=== PATIENT | female | born 1950 | race African-American/Black ===

== ENCOUNTER 2018-03-07 09:26 | Emergency (ER) | payer MEDICARE, MEDICAID ==
[~2018-03-07] VITALS: Ht 167.6 cm; Wt 73.0 kg
[~2018-03-07 09:26] MED LIST: ATEN50TA PO; FLUO20CA33 PO; METF-414 PO; SIMV40TA5 PO; VALS160T2 PO
[2018-03-07] MEDS ORDERED: ALPRAZOLAM 0.5 MG TABLET PO ONE (11:30)
[2018-03-07 14:21] VITALS: BP 144/61
== END 2018-03-07 14:21 | disposition home or self-care (01) ==
LOC: ER 09:42
DX: F41.9 Anxiety disorder, unspecified (principal); I25.2 Old myocardial infarction; E78.00 Pure hypercholesterolemia, unspecified; F31.9 Bipolar disorder, unspecified; Z79.899 Other long term (current) drug therapy; Z98.890 Other specified postprocedural states
CPT/HCPCS: 93005; 99284

== ENCOUNTER 2018-10-10 08:25 | Emergency (ER) | payer MEDICARE, MEDICAID ==
[~2018-10-10] VITALS: Ht 167.6 cm; Wt 73.0 kg
[2018-10-10 12:50] LABS: BASOPHILS % 0.7 % (0.0-2.0); EOSINOPHILS % 0.8 % (0.0-5.0); HEMATOCRIT. 38.1 % (36.0-48.0); LYMPHOCYTES % 27.1 % (20.0-50.0); MEAN CORPUSCULAR HEMOGLOBIN 29.9 pg (28.0-32.0); MEAN CORPUSCULAR VOLUME 87.4 fL (81.0-99.0); MEAN PLATELET VOLUME 8.1 fl (7.4-10.4); MONOCYTES % 10.2 % (2.0-8.0); NEUTROPHILS % 61.2 % (40.0-76.0); PLATELET 237 x1000/uL (130-400); RED BLOOD CELL COUNT 4.36 mill/uL (4.2-5.4); RED CELL DISTRIBUTION WIDTH 12.1 % (11.6-14.6)
[2018-10-10 12:56] LABS: CHLORIDE 108 mEq/L (98-107)
[2018-10-10] MEDS ORDERED: ONDANSETRON HCL 4MG/2ML INJ IV PRN (13:00)
[2018-10-10] MEDS ORDERED: ACETAMINOPHEN 325MG TABLET PO PRN (13:00)
[2018-10-10 15:00] VITALS: BP 111/71
[2018-10-11] MEDS ORDERED: ASPIRIN 81MG TABLET PO SCH (09:00)
== END 2018-10-10 16:34 | disposition left against medical advice (07) ==
LOC: ER 08:38 → EDBEDREQ 11:20 → CANBEDREQ 15:20 → ER 16:34
DX: I24.9 Acute ischemic heart disease, unspecified (principal); F41.9 Anxiety disorder, unspecified; F31.9 Bipolar disorder, unspecified; E11.9 Type 2 diabetes mellitus without complications; E78.00 Pure hypercholesterolemia, unspecified; I25.2 Old myocardial infarction; F17.290 Nicotine dependence, other tobacco product, uncomplicated
CPT/HCPCS: 36415; 71045; 82962; 83880; 84443; 84484; 93005; 99284

== ENCOUNTER 2018-11-26 11:12 | Emergency (ER) | payer MEDICARE, MEDICAID ==
[~2018-11-26] VITALS: Ht 162.6 cm; Wt 82.0 kg
[2018-11-26] MEDS ORDERED: MECLIZINE 25MG TABLET PO ONE (12:00)
[2018-11-26] MEDS ORDERED: SODIUM CHLORIDE 0.9% 1,000 ML IV ONE (12:00)
[2018-11-26] MEDS ORDERED: ONDANSETRON HCL 4MG/2ML INJ IV ONE (12:00)
[2018-11-26 12:16] LABS: BASOPHILS % 0.7 % (0.0-2.0); EOSINOPHILS % 1.9 % (0.0-5.0); HEMATOCRIT. 37.8 % (36.0-48.0); HEMOGLOBIN. 12.7 g/dL (12.0-16.0); LYMPHOCYTES % 26.7 % (20.0-50.0); MEAN CORPUSCULAR HEMOGLOBIN 29.6 pg (28.0-32.0); MEAN CORPUSCULAR VOLUME 88.4 fL (81.0-99.0); MEAN PLATELET VOLUME 8.5 fl (7.4-10.4); MONOCYTES % 10.5 % (2.0-8.0); NEUTROPHILS % 60.2 % (40.0-76.0); PLATELET 237 x1000/uL (130-400); RED BLOOD CELL COUNT 4.28 mill/uL (4.2-5.4); RED CELL DISTRIBUTION WIDTH 12.5 % (11.6-14.6)
[2018-11-26 12:20] LABS: CHLORIDE 104 mEq/L (98-107)
[2018-11-26 14:33] LABS: CLARITY URINE CLEAR (CLEAR); COLOR URINE YELLOW (YELLOW); KETONES URINE NEGATIVE (NEGATIVE); LEUKOCYTE ESTERASE URINE NEGATIVE (NEGATIVE); NITRITE URINE NEGATIVE (NEGATIVE); OCCULT BLOOD URINE NEGATIVE (NEGATIVE); PH URINE 6.5 (4.5-8.0); PROTEIN URINE NEGATIVE (NEGATIVE); UROBILINOGEN URINE 0.2 E.U./dL (0.2-1.0)
[2018-11-26 15:24] VITALS: BP 137/59
== END 2018-11-26 15:25 | disposition home or self-care (01) ==
LOC: ER 11:12
DX: R42 Dizziness and giddiness (principal); R51 Headache; F41.9 Anxiety disorder, unspecified; F31.9 Bipolar disorder, unspecified; E11.9 Type 2 diabetes mellitus without complications; E78.00 Pure hypercholesterolemia, unspecified; I25.2 Old myocardial infarction; Z79.899 Other long term (current) drug therapy
CPT/HCPCS: 36415; 70450; 71045; 80053; 81003; 84484; 85025; 93005; 96361; 96374; 99284; J2405; J7030; J8597

== ENCOUNTER 2019-01-09 10:02 | Inpatient (IN) | payer MEDICARE, MEDICAID ==
[~2019-01-09] VITALS: Ht 165.1 cm; Wt 86.2 kg
[2019-01-09 10:55] LABS: BASOPHILS % 0.6 % (0.0-2.0); EOSINOPHILS % 1.4 % (0.0-5.0); HEMATOCRIT. 39.6 % (36.0-48.0); HEMOGLOBIN. 13.5 g/dL (12.0-16.0); LYMPHOCYTES % 29.1 % (20.0-50.0); MEAN CORPUSCULAR HEMOGLOBIN 29.7 pg (28.0-32.0); MEAN PLATELET VOLUME 8.1 fl (7.4-10.4); NEUTROPHILS % 57.9 % (40.0-76.0); PLATELET 249 x1000/uL (130-400); RED BLOOD CELL COUNT 4.55 mill/uL (4.2-5.4); RED CELL DISTRIBUTION WIDTH 12.8 % (11.6-14.6)
[2019-01-09 11:00] LABS: CHLORIDE 104 mEq/L (98-107)
[2019-01-09 11:04] LABS: ETHANOL BLOOD < 10 mg/dL
[2019-01-09 12:15] VITALS: BP 109/44
[2019-01-09 13:03] LABS: METHADONE URINE SCREEN NEGATIVE (NEGATIVE); OPIATES URINE SCREEN NEGATIVE (NEGATIVE)
[2019-01-09 13:04] LABS: *AMPHETAMINES SCREEN URINE NEGATIVE (NEGATIVE); CANNABINOID URINE SCREEN NEGATIVE (NEGATIVE); PHENCYCLIDINE URINE SCREEN NEGATIVE (NEGATIVE)
[2019-01-09 13:07] LABS: *BARBITURATES SCREEN URINE NEGATIVE (NEGATIVE); *BENZODIAZEPINES SCREEN URINE NEGATIVE (NEGATIVE); *COCAINE SCREEN URINE NEGATIVE (NEGATIVE)
[2019-01-09] MEDS ORDERED: ONDANSETRON HCL 4MG/2ML INJ IV PRN (14:30)
[2019-01-09] MEDS: MECLIZINE 25MG TABLET PO PRN (18:04)
[2019-01-09] MEDS: ACETAMINOPHEN 325MG TABLET PO PRN (18:05)
[2019-01-09 20:00] VITALS: BP_SYST 114; BP_SYST 141; BP_SYST 156; BP_DIAS 41; BP_DIAS 56; BP_DIAS 71
[2019-01-09] MEDS: ENOXAPARIN 40MG/0.4ML SYR SUBCUT SCH (20:46)
[2019-01-10] VITALS: BP 112/46
[2019-01-10 04:00] VITALS: BP 132/48
[2019-01-10 06:19] LABS: BASOPHILS % 0.5 % (0.0-2.0); EOSINOPHILS % 2.2 % (0.0-5.0); HEMOGLOBIN. 13.3 g/dL (12.0-16.0); LYMPHOCYTES % 37.8 % (20.0-50.0); MEAN CORPUSCULAR HEMOGLOBIN 29.7 pg (28.0-32.0); MEAN CORPUSCULAR VOLUME 87.1 fL (81.0-99.0); MEAN PLATELET VOLUME 8.7 fl (7.4-10.4); MONOCYTES % 13.1 % (2.0-8.0); NEUTROPHILS % 46.4 % (40.0-76.0); PLATELET 245 x1000/uL (130-400); RED BLOOD CELL COUNT 4.48 mill/uL (4.2-5.4); RED CELL DISTRIBUTION WIDTH 12.9 % (11.6-14.6)
[2019-01-10 06:38] LABS: CHLORIDE 106 mEq/L (98-107)
[2019-01-10 08:18] LABS: CLARITY URINE CLEAR (CLEAR); COLOR URINE YELLOW (YELLOW); KETONES URINE NEGATIVE (NEGATIVE); LEUKOCYTE ESTERASE URINE NEGATIVE (NEGATIVE); NITRITE URINE NEGATIVE (NEGATIVE); OCCULT BLOOD URINE NEGATIVE (NEGATIVE); PROTEIN URINE NEGATIVE (NEGATIVE); SPECIFIC GRAVITY URINE 1.016 (1.005-1.030); UROBILINOGEN URINE 0.2 E.U./dL (0.2-1.0)
[2019-01-10] MEDS ORDERED: INFLUENZA VIRUS VACCINE(AFLURIA) 0.5ML SYR IM ONE (09:00)
[2019-01-10] MEDS: MECLIZINE 25MG TABLET PO PRN (09:49)
[2019-01-10] MEDS: ACETAMINOPHEN 325MG TABLET PO PRN (09:49)
[2019-01-10 20:44] VITALS: BP_SYST 134; BP_SYST 142; BP_DIAS 56; BP_DIAS 58
[2019-01-10 20:45] VITALS: BP 130/60
[2019-01-10] MEDS: ENOXAPARIN 40MG/0.4ML SYR SUBCUT SCH (20:57)
[2019-01-11] VITALS (8 sets, daily range): BP systolic 129–157; BP diastolic 60–82
[2019-01-11 06:25] LABS: BASOPHILS % 0.4 % (0.0-2.0); EOSINOPHILS % 1.2 % (0.0-5.0); HEMATOCRIT. 38.7 % (36.0-48.0); HEMOGLOBIN. 13.2 g/dL (12.0-16.0); LYMPHOCYTES % 30.6 % (20.0-50.0); MEAN CORPUSCULAR HEMOGLOBIN 29.7 pg (28.0-32.0); MEAN CORPUSCULAR VOLUME 87.3 fL (81.0-99.0); MEAN PLATELET VOLUME 8.7 fl (7.4-10.4); MONOCYTES % 7.9 % (2.0-8.0); NEUTROPHILS % 59.9 % (40.0-76.0); PLATELET 230 x1000/uL (130-400); RED BLOOD CELL COUNT 4.43 mill/uL (4.2-5.4); RED CELL DISTRIBUTION WIDTH 12.9 % (11.6-14.6)
[2019-01-11 07:01] LABS: CHLORIDE 102 mEq/L (98-107)
[2019-01-11] MEDS ORDERED: DILTIAZEM HCL 120MG CAPSULE CD 24HR PO SCH (15:15)
== END 2019-01-11 17:05 | disposition home or self-care (01) | DRG 74 ==
LOC: ER 10:02 → 6WST 11:29 → EDBEDREQTM 11:33 → EDBEDREQ 11:33 → ENRESERV 11:44
PROVIDERS: ADMIT Internal Medicine; ATTEND Internal Medicine
DX: G90.8 Other disorders of autonomic nervous system (principal); E11.9 Type 2 diabetes mellitus without complications; F31.9 Bipolar disorder, unspecified; I10 Essential (primary) hypertension; E78.5 Hyperlipidemia, unspecified; R07.89 Other chest pain; J44.9 Chronic obstructive pulmonary disease, unspecified; I25.2 Old myocardial infarction; Z79.899 Other long term (current) drug therapy; Z71.6 Tobacco abuse counseling; Z87.891 Personal history of nicotine dependence
CPT/HCPCS: 36415; 71045; 80048; 80305; 80320; 81003; 82962; 83880; 84484; 90686; 93005; 93306; 97162; 99285; J1650; J8597; G0480

== ENCOUNTER 2019-12-18 09:36 | Inpatient (IN) | payer MEDICARE, MEDICAID ==
[~2019-12-18] VITALS: Ht 162.6 cm; Wt 67.1 kg
[~2019-12-18 09:36] MED LIST changes: +SIMV-46 PO; -SIMV40TA5 PO; -VALS160T2 PO
[2019-12-18] MEDS ORDERED: MECLIZINE 25MG TABLET PO ONE (10:15)
[2019-12-18] MEDS ORDERED: ONDANSETRON 4MG ODT PO STA (10:15)
[2019-12-18 10:55] LABS: BASOPHILS % 0.5 % (0.0-2.0); EOSINOPHILS % 0.9 % (0.0-5.0); HEMATOCRIT. 40.2 % (36.0-48.0); HEMOGLOBIN. 13.6 g/dL (12.0-16.0); LYMPHOCYTES % 22.5 % (20.0-50.0); MEAN CORPUSCULAR HEMOGLOBIN 29.2 pg (28.0-32.0); MEAN PLATELET VOLUME 8.1 fl (7.4-10.4); MONOCYTES % 13.2 % (2.0-8.0); NEUTROPHILS % 62.9 % (40.0-76.0); PLATELET 265 x1000/uL (130-400); RED BLOOD CELL COUNT 4.67 mill/uL (4.2-5.4)
[2019-12-18 10:59] LABS: CHLORIDE 101 mEq/L (98-107)
[2019-12-18] MEDS ORDERED: SODIUM CHLORIDE 0.9% 500 ML IV ONE (11:15)
[2019-12-18] MEDS ORDERED: ASPIRIN 325MG EC TABLET PO ONE (11:45)
[2019-12-18] MEDS ORDERED: CLONIDINE 0.1MG TABLET PO PRN (12:15)
[2019-12-18] MEDS ORDERED: DIPHENHYDRAMINE 50MG/ML VIAL IV PRN (12:15)
[2019-12-18] MEDS ORDERED: IPRATROPIUM/ALBUTEROL 0.5-3(2.5)MG/3ML NEB HHN PRN (12:15)
[2019-12-18] MEDS ORDERED: MECLIZINE 12.5MG TABLET PO PRN (12:15)
[2019-12-18] MEDS ORDERED: ONDANSETRON HCL 4MG/2ML INJ IV PRN (12:15)
[2019-12-18 12:16] LABS: CLARITY URINE CLOUDY (CLEAR); COLOR URINE YELLOW (YELLOW); KETONES URINE NEGATIVE (NEGATIVE); LEUKOCYTE ESTERASE URINE NEGATIVE (NEGATIVE); NITRITE URINE NEGATIVE (NEGATIVE); OCCULT BLOOD URINE NEGATIVE (NEGATIVE); PH URINE 5.5 (4.5-8.0); PROTEIN URINE NEGATIVE (NEGATIVE); SPECIFIC GRAVITY URINE 1.019 (1.005-1.030); UROBILINOGEN URINE 0.2 E.U./dL (0.2-1.0)
[2019-12-18] MEDS: ENOXAPARIN 40MG/0.4ML SYR SUBCUT SCH (14:16)
[2019-12-18] MEDS ORDERED: ASPIRIN 81MG TABLET PO ONE (15:00)
[2019-12-18 18:47] VITALS: BP 148/69
[2019-12-18 20:00] VITALS: BP 143/80
[2019-12-18 22:09] LABS: ETHANOL BLOOD < 10 mg/dL
[2019-12-18 22:15] LABS: T4 FREE 0.82 ng/dL (0.76-1.46)
[2019-12-19] VITALS: BP 156/68
[2019-12-19 01:14] LABS: FOLIC ACID (FOLATE) SERUM 12.2 ng/mL (>5.38)
[2019-12-19] MEDS: ACETAMINOPHEN 325MG TABLET PO PRN (03:23)
[2019-12-19 04:00] VITALS: BP_SYST 152; BP_SYST 154; BP_SYST 164; BP_DIAS 69; BP_DIAS 84
[2019-12-19 04:42] LABS: *AMPHETAMINES SCREEN URINE NEGATIVE (NEGATIVE); *BARBITURATES SCREEN URINE NEGATIVE (NEGATIVE); *BENZODIAZEPINES SCREEN URINE NEGATIVE (NEGATIVE); *COCAINE SCREEN URINE NEGATIVE (NEGATIVE); METHADONE URINE SCREEN NEGATIVE (NEGATIVE); OPIATES URINE SCREEN NEGATIVE (NEGATIVE); PHENCYCLIDINE URINE SCREEN NEGATIVE (NEGATIVE)
[2019-12-19 04:44] LABS: CANNABINOID URINE SCREEN NEGATIVE (NEGATIVE)
[2019-12-19 06:45] LABS: BASOPHILS % 0.5 % (0.0-2.0); EOSINOPHILS % 1.7 % (0.0-5.0); HEMATOCRIT. 39.9 % (36.0-48.0); HEMOGLOBIN. 13.4 g/dL (12.0-16.0); LYMPHOCYTES % 28.8 % (20.0-50.0); MEAN CORPUSCULAR VOLUME 86.2 fL (81.0-99.0); MEAN PLATELET VOLUME 8.5 fl (7.4-10.4); MONOCYTES % 12.3 % (2.0-8.0); NEUTROPHILS % 56.7 % (40.0-76.0); PLATELET 245 x1000/uL (130-400); RED BLOOD CELL COUNT 4.62 mill/uL (4.2-5.4); RED CELL DISTRIBUTION WIDTH 13.1 % (11.6-14.6)
[2019-12-19 07:19] LABS: CHLORIDE 102 mEq/L (98-107)
[2019-12-19 07:29] LABS: LDL CHOLESTEROL 85 mg/dL (5-100)
[2019-12-19 07:30] LABS: HDL CHOLESTEROL 43 mg/dL (40-59)
[2019-12-19] MEDS ORDERED: IBUPROFEN 600MG TABLET PO PRN (11:00)
[2019-12-19] MEDS ORDERED: LORAZEPAM 2MG/ML CPJ IV SCH (11:00)
[2019-12-19 12:00] VITALS: BP_SYST 169; BP_SYST 176; BP_DIAS 78; BP_DIAS 85
[2019-12-19 12:22] VITALS: BP 200/84
[2019-12-19] MEDS: ENOXAPARIN 40MG/0.4ML SYR SUBCUT SCH (12:31)
[2019-12-19] MEDS ORDERED: CLONIDINE 0.1MG TABLET PO PRN (14:30)
[2019-12-19] MEDS: LOSARTAN POTASSIUM 25 MG TABLET PO SCH (15:44)
[2019-12-19] MEDS: METOPROLOL TARTRATE 50MG TABLET PO SCH ×2 (15:45→23:00)
[2019-12-19 16:00] VITALS: BP 119/62
[2019-12-19 20:00] VITALS: BP_SYST 113; BP_SYST 117; BP_SYST 118; BP_DIAS 45; BP_DIAS 49; BP_DIAS 57
[2019-12-19] MEDS: AMLODIPINE 5MG TABLET PO SCH (20:49)
[2019-12-20] VITALS: BP 130/47
[2019-12-20 01:25] VITALS: BP 130/47
[2019-12-20 08:00] VITALS: BP_SYST 123; BP_SYST 132; BP_SYST 140; BP_DIAS 54; BP_DIAS 55; BP_DIAS 60
[2019-12-20 08:32] LABS: BASOPHILS % 0.6 % (0.0-2.0); EOSINOPHILS % 2.2 % (0.0-5.0); HEMOGLOBIN. 12.8 g/dL (12.0-16.0); LYMPHOCYTES % 28.3 % (20.0-50.0); MEAN CORPUSCULAR HEMOGLOBIN 28.7 pg (28.0-32.0); MEAN CORPUSCULAR VOLUME 87.3 fL (81.0-99.0); MEAN PLATELET VOLUME 8.7 fl (7.4-10.4); MONOCYTES % 13.8 % (2.0-8.0); NEUTROPHILS % 55.1 % (40.0-76.0); PLATELET 243 x1000/uL (130-400); RED BLOOD CELL COUNT 4.47 mill/uL (4.2-5.4); RED CELL DISTRIBUTION WIDTH 13.4 % (11.6-14.6)
[2019-12-20 08:49] LABS: CHLORIDE 104 mEq/L (98-107)
[2019-12-20] MEDS: LOSARTAN POTASSIUM 25 MG TABLET PO SCH (08:51)
[2019-12-20] MEDS: AMLODIPINE 5MG TABLET PO SCH (08:51)
[2019-12-20] MEDS: METOPROLOL TARTRATE 50MG TABLET PO SCH (08:52)
[2019-12-20] MEDS ORDERED: FLUOXETINE HCL 20MG CAPSULE PO SCH (09:00)
[2019-12-20 12:00] VITALS: BP 136/51
[2019-12-20] MEDS ORDERED: ATEN50TA PO (13:54)
[2019-12-20] MEDS: ACETAMINOPHEN 325MG TABLET PO PRN (14:44)
[2019-12-20] MEDS: ENOXAPARIN 40MG/0.4ML SYR SUBCUT SCH (14:45)
[2019-12-20 14:48] VITALS: BP 136/51
[2019-12-20] MEDS ORDERED: METFORMIN HCL 500MG TABLET PO SCH (17:00)
[2019-12-21] MEDS ORDERED: LOSARTAN POTASSIUM 50 MG TABLET PO SCH (09:00)
== END 2019-12-20 17:10 | disposition home or self-care (01) | DRG 73 ==
LOC: ER 09:56 → 5WST 11:59 → ENRESERV 15:53
PROVIDERS: ADMIT Internal Medicine; ATTEND Internal Medicine
DX: G90.9 Disorder of the autonomic nervous system, unspecified (principal); G92 Toxic encephalopathy; R55 Syncope and collapse; J45.909 Unspecified asthma, uncomplicated; E11.9 Type 2 diabetes mellitus without complications; F17.200 Nicotine dependence, unspecified, uncomplicated; F31.9 Bipolar disorder, unspecified; R53.1 Weakness; H81.10 Benign paroxysmal vertigo, unspecified ear; I11.0 Hypertensive heart disease with heart failure; I50.9 Heart failure, unspecified
CPT/HCPCS: 36415; 71045; 80048; 80053; 80061; 80305; 80320; 81003; 82140; 82607; 82746; 83036; 83880; 84439; 84443; 84481; 84484; 85025; 93306; 93880; 93970; 99291; J1650; J7040; J8597; Q0162; G0480

== ENCOUNTER 2020-07-30 07:05 | Emergency (ER) | payer MEDICARE, MEDICAID ==
[~2020-07-30] VITALS: Ht 165.1 cm; Wt 88.0 kg
[2020-07-30] MEDS ORDERED: IPRATROPIUM BROMIDE (0.02%) 0.5MG/2.5ML NEB HHN STA (07:20)
[2020-07-30] MEDS ORDERED: PREDNISONE 20MG TABLET PO STA (07:20)
[2020-07-30] MEDS ORDERED: ALBUTEROL (0.083%) 2.5MG/3ML NEB HHN STA (07:20)
[2020-07-30] MEDS ORDERED: ALBU6.7H9 INH (08:42)
[2020-07-30] MEDS ORDERED: P50 PO (08:42)
[2020-07-30] MEDS ORDERED: DIPH103G TP (08:42)
[2020-07-30 08:59] VITALS: BP 124/76
== END 2020-07-30 09:06 | disposition home or self-care (01) ==
LOC: ER 07:05
DX: J45.909 Unspecified asthma, uncomplicated (principal); T14.8XXA Other injury of unspecified body region, initial encounter; W57.XXXA Bitten or stung by nonvenomous insect and other nonvenomous arthropods, initial encounter; Y93.89 Activity, other specified; Y92.89 Other specified places as the place of occurrence of the external cause; Y99.8 Other external cause status; F31.9 Bipolar disorder, unspecified; E11.9 Type 2 diabetes mellitus without complications; I10 Essential (primary) hypertension; I25.2 Old myocardial infarction; Z79.899 Other long term (current) drug therapy
CPT/HCPCS: 94640; 99283; J7512

== ENCOUNTER 2020-12-14 19:39 | Emergency (ER) | payer MEDICARE, MEDICAID ==
[~2020-12-14] VITALS: Ht 162.6 cm; Wt 75.0 kg
[~2020-12-14 19:39] MED LIST changes: +ALBU6.7H9 INH; +DIPH103G TP; +P50 PO
[2020-12-14] MEDS ORDERED: IBUPROFEN 400MG TABLET PO ONE (23:45)
[2020-12-14] MEDS ORDERED: ONDANSETRON 4MG ODT PO ONE (23:45)
[2020-12-15 01:45] VITALS: BP 153/97
[2020-12-15] MEDS ORDERED: NAPR375T5 MT (01:55)
== END 2020-12-15 02:35 | disposition home or self-care (01) ==
LOC: ER 19:39
DX: R51.9 Headache, unspecified (principal); I10 Essential (primary) hypertension; Z91.81 History of falling; E11.9 Type 2 diabetes mellitus without complications; J45.909 Unspecified asthma, uncomplicated; Z79.82 Long term (current) use of aspirin; Z79.84 Long term (current) use of oral hypoglycemic drugs; Z79.52 Long term (current) use of systemic steroids; Z79.899 Other long term (current) drug therapy
CPT/HCPCS: 70450; 99284; Q0162

== ENCOUNTER 2021-04-22 10:10 | Emergency (ER) | payer MEDICARE, MEDICAID ==
[~2021-04-22] VITALS: Ht 154.9 cm; Wt 64.0 kg
[~2021-04-22 10:10] MED LIST changes: +NAPR375T5 MT
[2021-04-22] MEDS ORDERED: LOSARTAN (10:17)
[2021-04-22] MEDS ORDERED: AMLODIPINE (10:17)
[2021-04-22] MEDS ORDERED: ACETAMINOPHEN 325MG TABLET PO ONE (10:45)
[2021-04-22] MEDS ORDERED: PERM60CR4 TP (11:21)
[2021-04-22] MEDS ORDERED: DIPH25CA83 MT (11:21)
[2021-04-22 12:15] VITALS: BP 130/68
== END 2021-04-22 12:15 | disposition home or self-care (01) ==
LOC: ER 10:10
DX: R51.9 Headache, unspecified (principal); L30.9 Dermatitis, unspecified; B86 Scabies; I11.0 Hypertensive heart disease with heart failure; I50.9 Heart failure, unspecified; E11.9 Type 2 diabetes mellitus without complications; Z79.899 Other long term (current) drug therapy
CPT/HCPCS: 93005; 99283

== ENCOUNTER 2021-06-21 22:21 | Emergency (ER) | payer MEDICARE, MEDICAID ==
[~2021-06-21] VITALS: Ht 167.6 cm; Wt 68.0 kg
[~2021-06-21 22:21] MED LIST changes: +AMLODIPINE; +DIPH25CA83 MT; +LOSARTAN; +PERM60CR4 TP
[2021-06-21 22:22] VITALS: BP 121/56
[2021-06-21] MEDS ORDERED: ACET-2708 MT (22:56)
[2021-06-21] MEDS ORDERED: CEPH500T MT (22:56)
[2021-06-21] MEDS ORDERED: BACITRACIN ZINC OINT UDPKT TOP ONE (23:00)
[2021-06-21] MEDS ORDERED: TETANUS, DIPHTHERIA, PERTUSSIS VAC/PF 0.5ML (>10YR OLD) IM ONE (23:00)
[2021-06-21] MEDS ORDERED: ACETAMINOPHEN 325MG TABLET PO ONE (23:00)
== END 2021-06-22 01:00 | disposition home or self-care (01) ==
LOC: ER 22:21
DX: S30.810A Abrasion of lower back and pelvis, initial encounter (principal); I11.0 Hypertensive heart disease with heart failure; I50.9 Heart failure, unspecified; E11.9 Type 2 diabetes mellitus without complications; J45.909 Unspecified asthma, uncomplicated; Z79.84 Long term (current) use of oral hypoglycemic drugs; W57.XXXA Bitten or stung by nonvenomous insect and other nonvenomous arthropods, initial encounter; Y93.89 Activity, other specified; Y92.89 Other specified places as the place of occurrence of the external cause
CPT/HCPCS: 90471; 90715; 99283

== ENCOUNTER 2021-06-22 03:08 | Emergency (ER) | payer MEDICARE, MEDICAID ==
[~2021-06-22] VITALS: Ht 162.6 cm; Wt 62.2 kg
[~2021-06-22 03:08] MED LIST changes: +ACET-2708 MT; +CEPH500T MT
[2021-06-22 03:23] VITALS: BP 150/56
[2021-06-22] MEDS ORDERED: ONDANSETRON 4MG ODT PO ONE (03:45)
[2021-06-22 04:42] LABS: BASOPHILS % 0.7 % (0.0-2.0); EOSINOPHILS % 1.6 % (0.0-5.0); HEMATOCRIT. 43.4 % (36.0-48.0); HEMOGLOBIN. 14.5 g/dL (12.0-16.0); MEAN CORPUSCULAR HEMOGLOBIN 28.9 pg (28.0-32.0); MEAN CORPUSCULAR VOLUME 86.1 fL (81.0-99.0); MONOCYTES % 7.6 % (2.0-8.0); NEUTROPHILS % 68.1 % (40.0-76.0); RED BLOOD CELL COUNT 5.04 mill/uL (4.2-5.4); RED CELL DISTRIBUTION WIDTH 13.7 % (11.6-14.6)
[2021-06-22 04:55] LABS: CHLORIDE 109 mEq/L (98-107)
[2021-06-22] MEDS ORDERED: ONDANSETRON 4MG ODT PO SCH (05:15)
[2021-06-22 05:54] LABS: MEAN PLATELET VOLUME 8.1 fl (7.4-10.4)
[2021-06-22 05:55] LABS: PLATELET 246 x1000/uL (130-400)
== END 2021-06-22 06:18 | disposition home or self-care (01) ==
LOC: ER 03:08
DX: R42 Dizziness and giddiness (principal); I11.0 Hypertensive heart disease with heart failure; I50.9 Heart failure, unspecified; E11.9 Type 2 diabetes mellitus without complications; J45.909 Unspecified asthma, uncomplicated; Z79.84 Long term (current) use of oral hypoglycemic drugs
CPT/HCPCS: 36415; 80053; 83690; 84484; 85025; 93005; 99284; Q0162

== ENCOUNTER 2021-10-28 20:18 | Emergency (ER) | payer MEDICARE, MEDICAID ==
[~2021-10-28] VITALS: Ht 167.6 cm; Wt 66.0 kg
[2021-10-29] MEDS ORDERED: ONDANSETRON 4MG ODT PO STA (01:52)
[2021-10-29 02:50] LABS: BASOPHILS % 0.5 % (0.0-2.0); EOSINOPHILS % 1.9 % (0.0-5.0); HEMOGLOBIN. 12.7 g/dL (12.0-16.0); LYMPHOCYTES % 26.9 % (20.0-50.0); MEAN CORPUSCULAR HEMOGLOBIN 29.9 pg (28.0-32.0); MEAN CORPUSCULAR VOLUME 91.6 fL (81.0-99.0); NEUTROPHILS % 56.7 % (40.0-76.0); PLATELET 223 x1000/uL (130-400); RED BLOOD CELL COUNT 4.26 mill/uL (4.2-5.4); RED CELL DISTRIBUTION WIDTH 13.8 % (11.6-14.6)
[2021-10-29 02:58] LABS: CHLORIDE 111 mEq/L (98-107)
[2021-10-29] MEDS ORDERED: BO1 TP (03:29)
[2021-10-29 03:45] VITALS: BP 156/66
== END 2021-10-29 03:46 | disposition home or self-care (01) ==
LOC: ER 20:18
DX: M79.89 Other specified soft tissue disorders (principal); R11.0 Nausea; I11.0 Hypertensive heart disease with heart failure; I50.9 Heart failure, unspecified; J45.909 Unspecified asthma, uncomplicated; E11.9 Type 2 diabetes mellitus without complications
CPT/HCPCS: 36415; 80053; 85025; 93971; 99284; Q0162